=== PATIENT | male | born 1970 | race African-American/Black ===

== ENCOUNTER 2021-01-12 09:03 | Emergency (ER) | payer OTHER ==
[~2021-01-12] VITALS: Ht 167.6 cm; Wt 81.7 kg
[2021-01-12] MEDS ORDERED: ZPAK PO (10:50)
[2021-01-12 10:53] VITALS: BP 150/91
== END 2021-01-12 11:00 | disposition home or self-care (01) ==
LOC: ER 09:03
DX: J18.9 Pneumonia, unspecified organism (principal); Z20.822 Contact with and (suspected) exposure to COVID-19; I10 Essential (primary) hypertension; E11.9 Type 2 diabetes mellitus without complications